=== PATIENT | female | born 1995 | race Caucasian/White ===

== ENCOUNTER 2017-09-10 13:15 | Emergency (ER) | payer MEDICAID, OTHER ==
[2017-09-10 13:22] VITALS: BP 128/69
--- NOTE | 2017-09-10 13:26 | EDM.PDOC ---
ED HPI GENERAL MEDICAL PROBLEM - General Chief Complaint: Laceration Stated Complaint: LEFT HAND LAC Time Seen by Provider: 09/10/17 13:26 Source of Information: Reports: Patient - History of Present Illness INITIAL COMMENTS - FREE TEXT/NARRATIVE: Patient is here for a laceration on her left hand. She states that she was at home, she was cutting bread with a sharp knife and cut the palm of her hand just proximal to the left index finger. Patient states that she is over all fairly healthy, denies any bleeding or clotting disorders. She is not diabetic. 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 Patient is unsure of her last tetanus. - Related Data Allergies Allergy/AdvReac Type Severity Reaction Status Date / Time No Known Allergies Allergy Verified 12/04/14 11:39 Home Meds: Home Meds ALPRAZolam [Alprazolam] 0.25 mg PO BID PRN 12/04/14 [History] Past Medical History - Past Health History Medical/Surgical History: Denies Medical/Surgical History Psychiatric History: Reports: Anxiety - Past Surgical History Other Musculoskeletal Surgeries/Procedures:: Left hand surgery Social & Family History - Family History Family Medical History: Noncontributory - Tobacco Use Smoking Status *Q: Current Every Day Smoker Years of Tobacco use: 2 Packs/Tins Daily: 0.5 - Recreational Drug Use Recreational Drug Use: No ED ROS GENERAL - Review of Systems Review Of Systems: See Below Constitutional: Reports: No Symptoms Skin: Reports: Other (Laceration to left hand). Denies: Bruising, Change in Color Neurological: Reports: No Symptoms Immunologic: Reports: No Symptoms ED EXAM, SKIN/RASH Exam: See Below Exam Limited By: No Limitations General Appearance: Alert, WD/WN, No Apparent Distress Neurological: Alert, Oriented, No Motor/Sensory Deficits Psychiatric: Normal Affect, Normal Mood Skin: Warm, Dry, Intact, Wound/Incision (1.3 cm laceration to left palm at the base of the index finger.) ED SKIN PROCEDURES - Laceration/Wound Repair Left Hand Lac/Wound length In cm: 1.3 Appearance: Linear Distal NVT: Neuro & Vascular Intact, No Tendon Injury Anesthetic Type: Local Local Anesthesia - Lidocaine (Xylocaine): 1% with EPI Local Anesthetic Volume: 2cc Skin Prep: Chlorhexidine (Hibiciens) Exploration/Debridement/Repair: Wound Explored, In a Bloodless Field, Explored to Base, No Foreign Material Found Closed with: Sutures Suture Size: 4-0 # of Sutures: 2 Suture Type: Nylon, Interrupted, Simple - Joint Reduction Pre-Procedure NV Status: Normal Post-Procedure NV Status: Normal Course - Vital Signs Last Recorded V/S: Last Vital Signs Temp 97.8 F 09/10/17 13:19 Pulse 81 09/10/17 13:19 Resp 14 09/10/17 13:19 BP 128/69 09/10/17 13:19 Pulse Ox 98 09/10/17 13:19 - Orders/Labs/Meds Orders: Active Orders 24 hr Category Date Time Status Vaccines to be Administered [RC] PER UNIT ROUTINE Care 09/10/17 13:32 Active Meds: Medications Discontinued Medications Generic Name Dose Route Start Last Admin Trade Name Fremegha PRN Reason Stop Dose Admin Diphtheria/Tetanus/Acell Pertussis 0.5 ml 09/10/17 13:32 Adacel IM 09/10/17 13:33 .ONCE ONE Lidocaine/Epinephrine 20 ml 09/10/17 13:32 09/10/17 13:44 Xylocaine 1% With Epinephrine 1:100,000 INJECT 09/10/17 13:33 20 ml ONETIME ONE Administration - Re-Assessments/Exams Free Text/Narrative Re-Assessment/Exam: 2 simple interrupted sutures placed, neurovascular intact after procedure. Patient tolerated procedure well. Tdap booster given. Wound care instructions and monitoring for infection discussed. Patient will follow up with PCP in 7-10 days for suture removal. Departure - Departure Time of Disposition: 14:02 Disposition: Home, Self-Care 01 Condition: Good Clinical Impression: Laceration of palm without complication Qualifiers: Encounter type: initial encounter Laterality: left Qualified Code(s): S61.412A - Laceration without foreign body of left hand, initial encounter - Discharge Information Instructions: Laceration Care, Adult, [id number] Referrals: Ashlee Painter NP [Primary Care Provider] - Forms: ED Department Discharge Additional Instructions: Keep wound clean and dry. He may shower and wash her hands is normal, no hot tubs of those until this is completely healed. You do not need to cover this with a bandage, however if you're going to be in a dirty environment you may want to. Wear gloves when you are cleaning at work. Monitor for any worsening redness, swelling or draining. Follow-up in 7-10 days with your PCP for suture removal or your may remove return to the emergency room if needed. - My Orders Last 24 Hours: My Active Orders 09/10/17 13:32 Vaccines to be Administered [RC] PER UNIT ROUTINE - Assessment/Plan Last 24 Hours: My Active Orders 09/10/17 13:32 Vaccines to be Administered [RC] PER UNIT ROUTINE
[2017-09-10] MEDS ORDERED: Diphtheria,Pertussis(Acell),Tetanus Vaccine 0.5 ML SDV IM ONE (13:32)
[2017-09-10] MEDS ORDERED: Lidocaine 1% with EPINEPHrine 1:100,000 20 ML MDV INJECT ONE (13:32)
== END 2017-09-10 14:23 | disposition home or self-care (01) ==
LOC: JD.ED 13:15
DX: S61.412A Laceration without foreign body of left hand, initial encounter (principal); F41.9 Anxiety disorder, unspecified; F17.210 Nicotine dependence, cigarettes, uncomplicated; W26.0XXA Contact with knife, initial encounter; Z23 Encounter for immunization
CPT/HCPCS: 12001; 90471; 90715; 99282-25; 99283-25

== ENCOUNTER 2020-08-19 14:03 | Inpatient (IN) | payer OTHER ==
[2020-08-19] MEDS ORDERED: Nalbuphine 10 MG/1 ML Vial IVPUSH PRN (14:58)
[2020-08-19] MEDS ORDERED: Lidocaine 1% 50 ML MDV INJECT PRN (14:58)
[2020-08-19] MEDS ORDERED: Sodium Chloride 0.9% 10 ML Syringe FLUSH PRN (14:58)
[2020-08-19] MEDS ORDERED: Oxytocin/Lactated Ringers 10 UNIT/1,000 ML BAG IV SCH (15:00)
[2020-08-19] MEDS: Lactated Ringers 1,000 ML IV SCH ×3 (15:54→23:43)
[2020-08-19] MEDS ORDERED: Ampicillin 2 GM in Sodium Chloride 0.9% 100 ML IV ONE (16:00)
--- NOTE | 2020-08-19 16:01 | PCM.LDHP ---
<Kaia Márquez - Last Filed: 08/19/20 16:22> L&D History of Present Illness - General Date of Service: 08/19/20 Admit Problem/Dx: Patient Status Order with Admit Dx/Problem 08/19/20 14:58 Patient Status [ADT] Routine Admission Diagnosis/Problem Admission Diagnosis/Problem Source of Information: Patient History Limitations: Reports: No Limitations - History of Present Illness Introduction:: Elva is a 24 yo white female admitted on the afternoon of 08/19/2020 at 39-1 weeks gestational age with an MICHAEL of 08/25/2020 for spontaneous rupture of membranes subsequently leading to early labor. She was seen in clinic prior to admission where monitoring as well as an Amnisure test took place. Amnisure was positive. She reports good activity although she states it was decreased earlier today. She is not currently in any pain but does have increased pelvic pressure. US performed on 08/14/2020 which showed LGA baby with estimated weight of 4073 g. Fundal height is 41 cm. Pt is GBS positive and is a candidate for Ampicillin. She is okay with an epidural and states she will decide whether or not to have an epidural as the labor progresses. course: Pt was initially seen with this at 01/03/2020 at 6 weeks and 3 days. She was seen on a regular basis throughout the . Fundal height is greater than gestational age at 41 cm with EFW of 9 pounds 0 oz. Pt's current weight is 220 lb with a total weight gain this of 55.4 pounds. Declined flu vaccine. Tdap given on 06/19/2020. She is rubella immune. Laboratory testing in shows blood to be A+. Her hemoglobin at first visit was 14.0 g/dL. Platelets were 248,000. RPR is non-reactice. Urine culture was negative. Hepatitis B surface antigen and HIV assays were both neg ative. Chlamydia and gonnorhea tests were both negative. Second trimester labs showed hemoglobin of 11.0, pt was started on iron supplementation. Platelets at this time were 228,000. Her 1 hour GTT was 103 mg/dL. Location, : Reports: Pelvic Quality: Reports: Pressure Severity: Moderate - Related Data Allergies/Adverse Reactions: Allergies Allergy/AdvReac Type Severity Reaction Status Date / Time No Known Allergies Allergy Verified 08/19/20 17:06 Home Medications: Home Meds Ferrous Sulfate [Iron] 325 mg PO DAILY 08/19/20 [History] Pnv No.95/Ferrous Fum/Folic AC [ Vitamin Tablet] 1 each PO DAILY 08/19/20 [History] Past Medical History - Past Health History Medical/Surgical History: Denies Medical/Surgical History [employer] History: Reports: : 1 Para: 0 Other OB/BYN History: This is patient's first . She is unsure of her age at first menarche but thinks it was around age 14. Her due date of 08/25/2020 is based upon her LMP of 11/19/2019 and supported by multiple ultrasounds during the course of the . No significant past obstetric history. Musculoskeletal History: Reports: None Psychiatric History: Reports: Anxiety - Past Surgical History Musculoskeletal Surgical History: Reports: Other (See Below) Other Musculoskeletal Surgeries/Procedures:: Left hand surgery-ganglion Social & Family History - Family History Family Medical History: No Pertinent Family History Cardiac: Reports: IN Other Cardiac Family History: grandfather Oncologic: Reports: Lung Other Oncologic Family History: 2 grandmothers - Tobacco Use Tobacco Use Status *Q: Former Tobacco User Tobacco Use Within Last Twelve Months: Cigarettes Packs/Tins Daily: 1 Used Tobacco, but Quit: Yes Month/Year Tobacco Last Used: November 2019 Smoking Cessation Information Provided To Patient: Patient Refused (Pt states she is not going to smoke again after . Wants to "quit for good".) - Living Situation & Occupation Living situation: Reports: Single, with Significant Other Occupation: Employed Social History Comment: Pt is single and lives in [place] with father of the baby. She works at a bar. She does not use any significant alcohol, drugs, or tobacco. Quit smoking once she found out she was . H&P Review of Systems - Review of Systems: General: Reports: No Symptoms HEENT: Reports: No Symptoms Pulmonary: Reports: No Symptoms Cardiovascular: Reports: No Symptoms Gastrointestinal: Reports: No Symptoms Genitourinary: Reports: No Symptoms, Frequency Musculoskeletal: Reports: No Symptoms Skin: Reports: No Symptoms Psychiatric: Reports: No Symptoms Neurological: Reports: No Symptoms Hematologic/Lymphatic: Reports: No Symptoms Immunologic: Reports: No Symptoms L&D Exam - Exam Exam: See Below - Vital Signs Vital Signs: Last Vital Signs Temp Pulse 95 08/19/20 15:30 Resp BP Pulse Ox Weight: 99.79 kg - OB Specific Contraction Intensity: Mild Movement: Active Heart Tones: Present - Exam General: Alert, Oriented, Cooperative HEENT: Conjunctiva Clear, EACs Clear, Hearing Intact, Pupils Equal Neck: Supple, Trachea Midline Lungs: Clear to Auscultation, Normal Respiratory Effort Cardiovascular: Regular Rate, Regular Rhythm GI/Abdominal Exam: Normal Bowel Sounds Rectal Exam: Deferred Genitourinary: Deferred Back Exam: Normal Inspection Extremities: Normal Inspection, Normal Range of Motion, Non-Tender Skin: Warm, Dry, Intact DTR: 1+: Bicep (L), Bicep (R), 2+: Patella (L), Patella (R) Psychiatric: Alert, Normal Affect, Normal Mood - Patient Data Lab Results Last 24 hrs: Laboratory Results - last 24 hr 08/19/20 Range/Units 15:34 WBC 12.82 H (3.98-10.04) K/mm3 RBC 4.24 (3.98-5.22) M/mm3 Hgb 12.4 (11.2-15.7) gm/dl Hct 37.8 (34.1-44.9) % MCV 89.2 (79.4-94.8) fl MCH 29.2 (25.6-32.2) pg MCHC 32.8 (32.2-35.5) g/dl RDW Std Deviation 45.1 (36.4-46.3) fL Plt Count 238 (182-369) K/mm3 MPV 9.0 L (9.4-12.3) fl Neut % (Auto) 81.4 H (34.0-71.1) % Lymph % (Auto) 10.0 L (19.3-51.7) % [place] % (Auto) 7.1 (4.7-12.5) % Eos % (Auto) 0.8 (0.7-5.8) Baso % (Auto) 0.2 (0.1-1.2) % Neut # (Auto) 10.44 H (1.56-6.13) K/mm3 Lymph # (Auto) 1.28 (1.18-3.74) K/mm3 [place] # (Auto) 0.91 H (0.24-0.36) K/mm3 Eos # (Auto) 0.10 (0.04-0.36) K/mm3 Baso # (Auto) 0.02 (0.01-0.08) K/mm3 Result Diagrams: 08/19/20 15:34 Orders Last 24hrs: Active Orders 24 hr Category Date Time Status Patient Status [ADT] Routine ADT 08/19/20 14:58 Active Activity as Tolerated [RC] PFP Care 08/19/20 14:58 Active Antiembolic Devices [RC] .Routine Care 08/19/20 15:00 Active Communication Order [RC] ASDIRECTED Care 08/19/20 14:58 Active Heart Tones [RC] ASDIRECTED Care 08/19/20 14:59 Active Non Stress Test [RC] PER UNIT ROUTINE Care 08/19/20 14:58 Active Notify Provider [RC] PFP Care 08/19/20 14:58 Active Notify Provider [RC] PRN Care 08/19/20 14:58 Active Peripheral IV Care [RC] . DIRECTED Care 08/19/20 14:59 Active Urinary Catheter Assessment [RC] ASDIRECTED Care 08/19/20 14:58 Active VTE/DVT Education [RC] PER UNIT ROUTINE Care 08/19/20 15:00 Active Vital Signs [RC] PER UNIT ROUTINE Care 08/19/20 14:58 Active Regular Diet [DIET] Diet 08/19/20 Dinner Active CORONAVIRUS COVID-19 YRN [MOLEC] Stat Lab 08/19/20 15:01 Ordered RAPID PLASMA REAGIN,RPR [CHEM] Routine Lab 08/19/20 15:34 Received Ampicillin 1 gm Med 08/19/20 20:00 Active Sodium Chloride 0.9% [Normal Saline] 100 ml IV Q4H Ampicillin 2 gm Med 08/19/20 16:00 Active Sodium Chloride 0.9% [Normal Saline] 100 ml IV ONETIME Lactated Ringers [Ringers, Lactated] 1,000 ml Med 08/19/20 15:00 Active IV ASDIRECTED Lidocaine 1% [Xylocaine 1%] Med 08/19/20 14:58 Active 50 ml INJECT ONETIME PRN Nalbuphine [Nubain] Med 08/19/20 14:58 Active 10 mg IVPUSH Q2H PRN Oxytocin/Lactated Ringers [Pitocin in LR 10 Units/1,000 Med 08/19/20 15:00 Active ML] 10 unit in 1,000 ml IV .CONTINUOUS Oxytocin/Lactated Ringers [Pitocin in LR 10 Units/1,000 Med 08/19/20 15:00 Active ML] 10 unit in 1,000 ml IV TITRATE Sodium Chloride 0.9% [Saline Flush] Med 08/19/20 14:58 Active 10 ml FLUSH ASDIRECTED PRN DVT/VTE Prophylaxis Reflex [OM.PC] Routine Oth 08/19/20 14:59 Ordered Electronic Heart Tones Ext w TOCO [WOMSER] Oth 08/19/20 14:58 Ordered Routine Electronic Heart Tones Internal [WOMSER] Per Unit Oth 08/19/20 14:58 Ordered Routine Peripheral IV Insertion Adult [OM.PC] Routine Ot 08/19/20 14:58 Ordered Sequential Compression Device [OM.PC] Per Unit Routine Ot 08/19/20 15:02 Ordered Resuscitation Status Routine Resus Stat 08/19/20 14:58 Ordered Medication Orders Ampicillin Sodium 2 gm/ Sodium (Chloride) 100 mls @ 200 mls/hr IV ONETIME ONE Stop: 08/19/20 16:29 Ampicillin Sodium 1 gm/ Sodium (Chloride) 100 mls @ 200 mls/hr IV Q4H ASH Oxytocin/Lactated Ringer's (Pitocin In Lr 10 Units/1,000 Ml) 10 unit in 1,000 mls @ 500 mls/hr IV .CONTINUOUS ASH Oxytocin/Lactated Ringer's (Pitocin In Lr 10 Units/1,000 Ml) 10 unit in 1,000 mls @ 12 mls/hr IV TITRATE ASH; Protocol Lactated Ringer's (Ringers, Lactated) 1,000 mls @ 100 mls/hr IV ASDIRECTED ASH Lidocaine HCl (Xylocaine 1%) 50 ml INJECT ONETIME PRN PRN Reason: Breakthrough Pain Nalbuphine HCl (Nubain) 10 mg IVPUSH Q2H PRN PRN Reason: Pain Sodium Chloride (Saline Flush) 10 ml FLUSH ASDIRECTED PRN PRN Reason: Keep Vein Open <Jose Andre F - Last Filed: 08/20/20 20:42> L&D History of Present Illness - General Admit Problem/Dx: Patient Status Order with Admit Dx/Problem 08/20/20 13:58 Patient Status [ADT] Routine Admission Diagnosis/Problem Admission Diagnosis/Problem Vaginal delivery 08/20/20 20:37 Elva is a 24-year-old to 1 para 0 white female admitted spontaneous rupture membranes in early labor. H&P Review of Systems - Review of Systems: Review Of Systems: See Below L&D Exam - Exam Exam: See Below - Vital Signs Vital Signs: Last Vital Signs Temp 36.8 C 08/20/20 17:03 Pulse 107 H 08/20/20 17:03 Resp 16 08/20/20 17:03 BP 156/79 H 08/20/20 17:03 Pulse Ox 97 08/20/20 17:03 - Patient Data Lab Results Last 24 hrs: Laboratory Results - last 24 hr 08/19/20 Range/Units 15:34 RPR Non-reactive (NONREACTIVE) Result Diagrams: 08/19/20 15:34 Problem List Initiated/Reviewed/Updated: Yes Orders Last 24hrs: Active Orders 24 hr Category Date Time Status Patient Status [ADT] Routine ADT 08/20/20 13:58 Active Activity as Tolerated [RC] PER UNIT ROUTINE Care 08/20/20 13:58 Active May Shower [RC] ASDIRECTED Care 08/20/20 13:58 Active Notify Provider Vital Signs [RC] ASDIRECTED Care 08/20/20 13:58 Active Vital Signs [RC] 03,,, Care 08/20/20 13:58 Active Regular Diet [DIET] Diet 08/20/20 Lunch Active Acetaminophen [TylenoL] Med 08/20/20 13:58 Active 650 mg PO Q6H PRN Benzocaine/Menthol [Dermoplast Pain Relief [place]] Med 08/20/20 13:58 Active See Dose Instructions TOP ASDIRECTED PRN Docusate Sodium [Colace] Med 08/20/20 13:58 Active 100 mg PO BID PRN Hydrocortisone Acetate [Anucort-HC] Med 08/20/20 13:58 Active 25 mg RECTAL BID PRN Ibuprofen [Motrin] Med 08/20/20 13:58 Active 600 mg PO Q6H PRN Magnesium Hydroxide [Milk of Magnesia] Med 08/20/20 13:58 Active 30 ml PO BEDTIME PRN Oxytocin/Lactated Ringers [Pitocin in LR 10 Units/1,000 Med 08/20/20 13:58 Active ML] 10 unit in 1,000 ml IV TITRATE Vit with Ca/FA/Iron [ Plus Iron] Med 08/21/20 09:00 Active 1 each PO DAILY witramón Alcazar [Tucks] Med 08/20/20 13:58 Active 1 pad TOP ASDIRECTED PRN Assess Lochia [WOMSER] Per Unit Routine Ot 08/20/20 13:58 Ordered Assess Uterine Involution [WOMSER] Per Unit Routine Ot 08/20/20 13:58 Ordered Breast Pump [WOMSER] Per Unit Routine Ot 08/20/20 13:58 Ordered Heat Therapy [OM.PC] PRN Ot 08/20/20 13:58 Ordered Heat Therapy [OM.PC] PRN Ot 08/21/20 13:58 Ordered Ice Therapy [OM.PC] Per Unit Routine Ot 08/20/20 13:58 Ordered Medication Administration Instruction [OM.PC] Routine Ot 08/20/20 13:58 Ordered Perineal Care [OM.PC] Per Unit Routine Ot 08/20/20 13:58 Ordered Peripheral IV Discontinue [OM.PC] Routine Ot 08/20/20 13:58 Ordered Sitz Bath [OM.PC] Per Unit Routine Ot 08/20/20 13:58 Ordered Medication Orders Acetaminophen (Tylenol) 650 mg PO Q6H PRN PRN Reason: mild pain or fever Benzocaine/Menthol (Dermoplast Pain Relief [place]) 0 gm TOP ASDIRECTED PRN PRN Reason: Perineal Comfort Measure Last Admin: 08/20/20 14:24 Dose: 1 canister Documented by: BULMARO Docusate Sodium (Colace) 100 mg PO BID PRN PRN Reason: Constipation Last Admin: 08/20/20 14:22 Dose: 100 mg Documented by: BULMARO Hydrocortisone Acetate (Anucort-Hc) 25 mg RECTAL BID PRN PRN Reason: Hemorrhoid pain Oxytocin/Lactated Ringer's (Pitocin In Lr 10 Units/1,000 Ml) 10 unit in 1,000 mls @ 100 mls/hr IV TITRATE ASH; Protocol Ibuprofen (Motrin) 600 mg PO Q6H PRN PRN Reason: Mild pain or fever Last Admin: 08/20/20 14:22 Dose: 600 mg Documented by: BULMARO Magnesium Hydroxide (Milk Of Magnesia) 30 ml PO BEDTIME PRN PRN Reason: Constipation Prenat Multivit/Emmet/Iron/Folic Ac ( Plus Iron) 1 each PO DAILY ASH Alcazar (Tucks) 1 pad TOP ASDIRECTED PRN PRN Reason: Perineal Comfort Measure Last Admin: 08/20/20 14:24 Dose: 1 container Documented by: BULMARO Assessment/Plan Comment:: 1. 4-year-old 1 para 0 white female at 39-1/7 weeks gestational age with an MICHAEL of 08/25/2020 with spontaneous rupture membranes and positive AmniSure. Patient reports SROM at approximately 0930 hrs. on 08/19/2020 2. Strep screen + 3. Patient desires epidural in labor Plan: 1. Pitocin induction of labor 2. Epidural as needed 3. Group B strep prophylaxis with ampicillin 4. Routine careanticipate . 5. Support breast-feeding decision.
[2020-08-19] MEDS: Oxytocin/Lactated Ringers 10 UNIT/1,000 ML BAG IV SCH (16:33)
--- NOTE | 2020-08-19 19:41 | PCM.PREANE ---
Preanesthetic Assessment - Procedure Proposed Procedure: george - Anesthesia/Transfusion/Family Hx Anesthesia History: Prior Anesthesia Without Reaction Family History of Anesthesia Reaction: No Transfusion History: No Prior Transfusion(s) Type of Transfusion Reactions: Reports: Unknown - Review of Systems General: No Symptoms Pulmonary: No Symptoms Cardiovascular: No Symptoms Gastrointestinal: No Symptoms Neurological: No Symptoms Other: Reports: None - Physical Assessment Vital Signs: Last Vital Signs Temp 97.7 F 08/19/20 14:31 Pulse 95 08/19/20 15:30 Resp 18 08/19/20 14:31 BP 139/82 08/19/20 14:31 Pulse Ox 99 08/19/20 14:31 Height: 5 ft 5 in Weight: 99.79 kg ASA Class: 2 Mental Status: Alert & Oriented x3 Airway Class: Mallampati = 1 Dentition: Reports: Normal Dentition Thyro-Mental Finger Breadths: 3 Mouth Opening Finger Breadths: 3 ROM/Head Extension: Full Lungs: Clear to Auscultation, Normal Respiratory Effort Cardiovascular: Regular Rate, Regular Rhythm - Lab Values: Laboratory Last Values WBC 12.82 K/mm3 (3.98-10.04) H 08/19/20 15:34 RBC 4.24 M/mm3 (3.98-5.22) 08/19/20 15:34 Hgb 12.4 gm/dl (11.2-15.7) 08/19/20 15:34 Hct 37.8 % (34.1-44.9) 08/19/20 15:34 MCV 89.2 fl (79.4-94.8) 08/19/20 15:34 MCH 29.2 pg (25.6-32.2) 08/19/20 15:34 MCHC 32.8 g/dl (32.2-35.5) 08/19/20 15:34 RDW Std Deviation 45.1 fL (36.4-46.3) 08/19/20 15:34 Plt Count 238 K/mm3 (182-369) 08/19/20 15:34 MPV 9.0 fl (9.4-12.3) L 08/19/20 15:34 Neut % (Auto) 81.4 % (34.0-71.1) H 08/19/20 15:34 Lymph % (Auto) 10.0 % (19.3-51.7) L 08/19/20 15:34 [place] % (Auto) 7.1 % (4.7-12.5) 08/19/20 15:34 Eos % (Auto) 0.8 (0.7-5.8) 08/19/20 15:34 Baso % (Auto) 0.2 % (0.1-1.2) 08/19/20 15:34 Neut # (Auto) 10.44 K/mm3 (1.56-6.13) H 08/19/20 15:34 Lymph # (Auto) 1.28 K/mm3 (1.18-3.74) 08/19/20 15:34 [place] # (Auto) 0.91 K/mm3 (0.24-0.36) H 08/19/20 15:34 Eos # (Auto) 0.10 K/mm3 (0.04-0.36) 08/19/20 15:34 Baso # (Auto) 0.02 K/mm3 (0.01-0.08) 08/19/20 15:34 SARS-CoV-2 RNA (YRN) Negative (NEGATIVE) 08/19/20 15:55 - Allergies Allergies/Adverse Reactions: Allergies Allergy/AdvReac Type Severity Reaction Status Date / Time No Known Allergies Allergy Verified 08/19/20 17:06 - Blood Blood Available: No - Acknowledgements Anesthesia Type Planned: Epidural Pt an Appropriate Candidate for the Planned Anesthesia: Yes Alternatives and Risks of Anesthesia Discussed w Pt/Guardian: Yes Pt/Guardian Understands and Agrees with Anesthesia Plan: Yes PreAnesthesia Questionnaire - Past Health History Medical/Surgical History: Denies Medical/Surgical History Cardiovascular History: Reports: None Respiratory History: Reports: None Gastrointestinal History: Reports: None 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 She is unsure of her age at first menarche but thinks it was around age 14. Her due date of 08/25/2020 is based upon her LMP of 11/19/2019 and supported by multiple ultrasounds during the course of the . No significant past obstetric history. Musculoskeletal History: Reports: None Psychiatric History: Reports: Anxiety Oncologic (Cancer) History: Reports: None - Past Surgical History Musculoskeletal Surgical History: Reports: Other (See Below) Other Musculoskeletal Surgeries/Procedures:: Left hand surgery-ganglion - SUBSTANCE USE Tobacco Use Status *Q: Former Tobacco User Tobacco Use Within Last Twelve Months: Cigarettes Second Hand Smoke Exposure: Yes Recreational Drug Use History: No - HOME MEDS Home Medications: Home Meds Ferrous Sulfate [Iron] 325 mg PO DAILY 08/19/20 [History] Pnv No.95/Ferrous Fum/Folic AC [ Vitamin Tablet] 1 each PO DAILY 08/19/20 [History] - CURRENT (IN HOUSE) MEDS Current Meds: Current Medications Ampicillin Sodium 1 gm/ Sodium (Chloride) 100 mls @ 200 mls/hr IV Q4H ASH Oxytocin/Lactated Ringer's (Pitocin In Lr 10 Units/1,000 Ml) 10 unit in 1,000 mls @ 500 mls/hr IV .CONTINUOUS ASH Oxytocin/Lactated Ringer's (Pitocin In Lr 10 Units/1,000 Ml) 10 unit in 1,000 mls @ 12 mls/hr IV TITRATE ASH; Protocol Last Titration: 08/19/20 18:30 Dose: 8 munits/min, 48 mls/hr Documented by: Lactated Ringer's (Ringers, Lactated) 1,000 mls @ 100 mls/hr IV ASDIRECTED ASH Last Admin: 08/19/20 15:54 Dose: 100 mls/hr Documented by: Lidocaine HCl (Xylocaine 1%) 50 ml INJECT ONETIME PRN PRN Reason: Breakthrough Pain Nalbuphine HCl (Nubain) 10 mg IVPUSH Q2H PRN PRN Reason: Pain Sodium Chloride (Saline Flush) 10 ml FLUSH ASDIRECTED PRN PRN Reason: Keep Vein Open Discontinued Medications Ampicillin Sodium 2 gm/ Sodium (Chloride) 100 mls @ 200 mls/hr IV ONETIME ONE Stop: 08/19/20 16:29 Last Admin: 08/19/20 15:54 Dose: 200 mls/hr Documented by:
[2020-08-19] MEDS ORDERED: ePHEDrine 50 MG/ML SDV IVPUSH PRN (19:45)
[2020-08-19] MEDS ORDERED: diphenhydrAMINE 50 MG/ML SDV IVPUSH PRN (19:45)
[2020-08-19] MEDS ORDERED: fentaNYL 100 MCG/2 ML SDV EPIDUR PRN (19:45)
[2020-08-19] MEDS: Ampicillin 1 GM in Sodium Chloride 0.9% 100 ML IV SCH ×2 (19:53→23:42)
[2020-08-19] MEDS: Bupivacaine/fentaNYL/NS 100 ML Bag EPIDUR PRN (21:16)
[2020-08-20] MEDS ORDERED: Bupivacaine 0.25% 10 ML SDV ONE
[2020-08-20] MEDS: Ampicillin 1 GM in Sodium Chloride 0.9% 100 ML IV SCH ×3 (03:42→12:21)
[2020-08-20] MEDS: Bupivacaine/fentaNYL/NS 100 ML Bag EPIDUR PRN (04:43)
[2020-08-20] MEDS: Oxytocin/Lactated Ringers 10 UNIT/1,000 ML BAG IV SCH (07:20)
[2020-08-20] MEDS: Lactated Ringers 1,000 ML IV SCH (10:45)
[2020-08-20] MEDS ORDERED: Lidocaine 1% 50 ML MDV ONE (12:12)
--- NOTE | 2020-08-20 12:48 | PCM.DEL ---
L & D Note - General Info Date of Service: 08/20/20 Mother's Due Date: 08/25/20 - Delivery Note Labor: Spontaneous, Augmented by Oxytocin Cervical Ripening Method: Oxytocin Delivery Outcome: Livebirth Presentation: Right Occiput Anterior (TERRELL) Nuchal Cord: None Prep: Povidone-Iodine (Betadine Anesthesia Type: Epidural Anesthetic: Lidocaine (Xylocaine) 1% Plain Local Anesthetic Volume: Other (15 mL) Amniotic Fluid Description: Clear Episiotomy Type: None Laceration: 2nd Degree (Midline perineal laceration repaired with 3-0 Vicryl), Labial (Bilateral medial labia minora laceration, hemostatic and not repaired) Suture type: Vicryl Suture size: 3-0 Placenta: Intact, Spontaneous, Partial (Partial membranes removed with ring forceps) Cord: 3 Vessels Estimated Blood Loss: 400 Resuscitation Needed: Yes [place]: Suctioned, Bulb Syringe, Stimulated, Warmed, [place] Used, Warmer Used Provider: Alexandre Torres Score 1 min: 8 Score 5 min: 9 Second Stage Interventions: Reports: Pushing Effectively, Pushing, Stirrups/Leg Supports Delivery Comments (Free Text/Narrative):: Stage I: Elva Xiong was admitted for spontaneous rupture membranes. She was GBS positive and was started on ampicillin for GBS prophylaxis. She received a total of 5 doses prior to delivery. She was given an epidural for anesthesia. She was given Pitocin for augmentation of labor. She had artificial rupture of membranes of a fore bag with lightly bloodstained fluid. She progressed to complete and pushing. Stage II: On 08/20/2020 she had a normal vaginal delivery of a live female at 11:57. Apgars of 8 & 9. Weight of 4160 g (9 lbs 2.7 oz). Length of 22.5 inches. There was no nuchal cord. Infant was delivered in TERRELL position. The cord was doubly clamped and cut by father the . was placed on mother's abdomen and then taken to the warmer for additional resuscitation. Stage III: She had a spontaneous delivery of the placenta with retained portions of amniotic membranes in Brianne presentation. A ring forceps was used to remove the retained portions of the amniotic membranes without difficulty. Three vessel cord. She was given pitocin and fundal massage. She had a second-degree midline perineal laceration that was repaired with 3-0 Vicryl. She had bilateral labia minora lacerations that were hemostatic and not repaired. Mom and baby were stable to recovery. EBL of 400 mL. Alexandre Torres MD 12:44 PM 08/20/2020 - General Info Date of Service: 08/20/20 - Patient Data Vitals - Most Recent: Last Vital Signs Temp 36.5 C 08/19/20 14:31 Pulse 95 08/19/20 15:30 Resp 18 08/19/20 14:31 BP 139/82 08/19/20 14:31 Pulse Ox 99 08/19/20 14:31 Weight - Most Recent: 99.79 kg Lab Results Last 24 Hours: Laboratory Results - last 24 hr 08/19/20 08/19/20 08/19/20 Range/Units 15:34 15:34 15:55 WBC 12.82 H (3.98-10.04) K/mm3 RBC 4.24 (3.98-5.22) M/mm3 Hgb 12.4 (11.2-15.7) gm/dl Hct 37.8 (34.1-44.9) % MCV 89.2 (79.4-94.8) fl MCH 29.2 (25.6-32.2) pg MCHC 32.8 (32.2-35.5) g/dl RDW Std Deviation 45.1 (36.4-46.3) fL Plt Count 238 (182-369) K/mm3 MPV 9.0 L (9.4-12.3) fl Neut % (Auto) 81.4 H (34.0-71.1) % Lymph % (Auto) 10.0 L (19.3-51.7) % Hunt % (Auto) 7.1 (4.7-12.5) % Eos % (Auto) 0.8 (0.7-5.8) Baso % (Auto) 0.2 (0.1-1.2) % Neut # (Auto) 10.44 H (1.56-6.13) K/mm3 Lymph # (Auto) 1.28 (1.18-3.74) K/mm3 Hunt # (Auto) 0.91 H (0.24-0.36) K/mm3 Eos # (Auto) 0.10 (0.04-0.36) K/mm3 Baso # (Auto) 0.02 (0.01-0.08) K/mm3 RPR Non-reactive (NONREACTIVE) SARS-CoV-2 RNA (YRN) Negative (NEGATIVE) Med Orders - Current: Current Medications Diphenhydramine HCl (Benadryl) 25 mg IVPUSH Q6H PRN PRN Reason: pruritis Ephedrine Sulfate (Ephedrine Sulfate) 5 mg IVPUSH ASDIRECTED PRN PRN Reason: Hypotension Fentanyl (Sublimaze) 100 mcg EPIDUR Q3H PRN PRN Reason: Pain Last Admin: 08/19/20 21:15 Dose: 100 mcg Documented by: Fentanyl/Bupivacaine HCl (Fentanyl/Bupivacaine/Ns 2 Mcg-0.125% 100 Ml) 100 ml EPIDUR ASDIRECTED PRN PRN Reason: Pain Last Admin: 08/20/20 04:43 Dose: 100 ml Documented by: Ampicillin Sodium 1 gm/ Sodium (Chloride) 100 mls @ 200 mls/hr IV Q4H ASH Last Admin: 08/20/20 12:21 Dose: Not Given Documented by: Oxytocin/Lactated Ringer's (Pitocin In Lr 10 Units/1,000 Ml) 10 unit in 1,000 mls @ 500 mls/hr IV .CONTINUOUS ASH Oxytocin/Lactated Ringer's (Pitocin In Lr 10 Units/1,000 Ml) 10 unit in 1,000 mls @ 12 mls/hr IV TITRATE ASH; Protocol Last Titration: 08/20/20 11:58 Dose: 166.5 munits/min, 999 mls/hr Documented by: Lactated Ringer's (Ringers, Lactated) 1,000 mls @ 100 mls/hr IV ASDIRECTED ASH Last Admin: 08/20/20 10:45 Dose: 100 mls/hr Documented by: Lidocaine HCl (Xylocaine 1%) 50 ml INJECT ONETIME PRN PRN Reason: Breakthrough Pain Last Admin: 08/20/20 12:15 Dose: 50 ml Documented by: Nalbuphine HCl (Nubain) 10 mg IVPUSH Q2H PRN PRN Reason: Pain Sodium Chloride (Saline Flush) 10 ml FLUSH ASDIRECTED PRN PRN Reason: Keep Vein Open Discontinued Medications Ampicillin Sodium 2 gm/ Sodium (Chloride) 100 mls @ 200 mls/hr IV ONETIME ONE Stop: 08/19/20 16:29 Last Admin: 08/19/20 15:54 Dose: 200 mls/hr Documented by: Lidocaine HCl (Xylocaine 1%) Confirm Administered Dose 50 ml .ROUTE .STK-MED ONE Stop: 08/20/20 12:13 Last Admin: 08/20/20 12:21 Dose: Not Given Documented by: - Problem List & Annotations (1) 39 weeks gestation of SNOMED Code(s): 56417173 Code(s): Z3A.39 - 39 WEEKS GESTATION OF Status: Acute Current Visit: Yes (2) GBS (group B Streptococcus carrier), +RV culture, currently SNOMED Code(s): 4548348536244, 792950940, 7004387708283 Code(s): O99.820 - STREPTOCOCCUS B CARRIER STATE COMPLICATING Status: Acute Current Visit: Yes (3) Vaginal delivery SNOMED Code(s): 926082767 Code(s): O80 - ENCOUNTER FOR FULL-TERM UNCOMPLICATED DELIVERY Status: Acute Current Visit: Yes (4) Second degree perineal laceration during delivery SNOMED Code(s): 2630140 Code(s): O70.1 - SECOND DEGREE PERINEAL LACERATION DURING DELIVERY Status: Acute Current Visit: Yes - Problem List Review Problem List Initiated/Reviewed/Updated: Yes - My Orders Last 24 Hours: My Active Orders 08/20/20 12:35 Patient Status Manage Transfer [TRANSFER] Routine - Plan Plan:: Admit to inpatient following normal spontaneous vaginal delivery Continue Pitocin per unit protocol following delivery of placenta and lactated Ringer's until tolerating regular diet Regular diet Vitals per unit routine Ibuprofen and Tylenol for pain control Assist with breast-feeding as needed Continue to monitor lochia Anticipate discharge home on day #2 Alexandre Torres MD 12:44 PM 08/20/2020
[2020-08-20] MEDS ORDERED: Oxytocin/Lactated Ringers 10 UNIT/1,000 ML BAG IV SCH (13:58)
[2020-08-20] MEDS ORDERED: Magnesium Hydroxide 400 MG/5 ML Susp 30 ML Cup PO PRN (13:58)
[2020-08-20] MEDS ORDERED: Acetaminophen 325 MG Tab PO PRN (13:58)
[2020-08-20] MEDS ORDERED: Benzocaine/Menthol 20%-0.5% Spray 56 GM Canister TOP PRN (13:58)
[2020-08-20] MEDS ORDERED: Hydrocortisone Acetate 25 MG Supp RECTAL PRN (13:58)
[2020-08-20] MEDS: Ibuprofen 600 MG Tab PO PRN ×2 (14:22→21:47)
[2020-08-20] MEDS: Docusate Sodium 100 MG Cap PO PRN (14:22)
[2020-08-20] MEDS: Witch Hazel Medicated Pads 40/Jar TOP PRN (14:24)
[2020-08-21] MEDS: Acetaminophen/oxyCODONE 325-5 MG Tab PO PRN ×6 (00:15→21:47)
[2020-08-21] MEDS: Prenatal Multivitamin with Calcium/Folic Acid/Iron Tab PO SCH (09:55)
[2020-08-21] MEDS: Docusate Sodium 100 MG Cap PO PRN (09:55)
--- NOTE | 2020-08-21 10:06 | PCM.SN.2 ---
- Free Text/Narrative Note: Post Progress Note PPD #1 Subjective: Doing well overall. Ambulating slowly without difficulty. Lochia minimal. Voiding without difficulty. Tolerating regular diet without nausea or vomiting. Reports that she is having some hip pain that is more severe than the pelvic pain. She was written for Percocet by Dr. Andre and states that this is helping with her pain. Breast-feeding with minimal difficulty. Objective: Vitals: Vital Signs - 24 hr 08/20/20 08/20/20 08/21/20 17:03 22:12 03:59 Temperature 36.8 C 36.8 C 36.7 C Pulse, 107 H 108 H 92 Peripheral Respiratory 16 14 14 Rate Blood Pressure 156/79 H 135/69 108/82 O2 Sat by Pulse 97 96 97 Oximetry 08/21/20 10:00 Temperature 37.6 C Pulse, 102 H Peripheral Respiratory 16 Rate Blood Pressure 113/65 O2 Sat by Pulse 97 Oximetry Physical Exam General: Alert and oriented, no acute distress Lungs: Clear to auscultation bilaterally Heart: Regular rate and rhythm Abdomen: Soft, minimal appropriate tenderness, non-distended, fundus midline, nontender, and at the umbilicus Extremities: Trace edema in bilateral lower extremities to mid shins ASSESSMENT: 24-year-old female -0-0-1 s/p normal vaginal delivery PPD #1, complicated by macrosomia and GBS positive status and she received 5 doses of ampicillin in labor PLAN: Doing well Breast-feeding with minimal difficulty. Assist as needed Lochia minimal. Continue to monitor for appropriate lochia. Continue routine care Continue medications for pain control. Recommend for patient to try to avoid use of narcotic pain medications due to the addictive nature of these medications. Anticipate discharge home tomorrow Alexandre Torres MD 10:05 AM 08/21/2020
--- NOTE | 2020-08-21 14:36 | PCM48HPAN ---
Post Anesthesia Note - EVALUATION WITHIN 48HRS OF ANESTHETIC Vital Signs in Normal Range: Yes Patient Participated in Evaluation: Yes Respiratory Function Stable: Yes Airway Patent: Yes Cardiovascular Function Stable: Yes Hydration Status Stable: Yes Pain Control Satisfactory: Yes Nausea and Vomiting Control Satisfactory: Yes Mental Status Recovered: Yes Vital Signs: Last Vital Signs Temp 37.6 C 08/21/20 10:00 Pulse 102 H 08/21/20 10:00 Resp 16 08/21/20 10:00 BP 113/65 08/21/20 10:00 Pulse Ox 97 08/21/20 10:00 - COMMENTS/OBSERVATIONS Free Text/Narrative:: Discharged home. No concerns reported by nursing staff. Chart reviewed.
[2020-08-21] MEDS: Ibuprofen 600 MG Tab PO PRN (15:19)
[2020-08-22] MEDS: Acetaminophen/oxyCODONE 325-5 MG Tab PO PRN (05:37)
[2020-08-22] MEDS: Prenatal Multivitamin with Calcium/Folic Acid/Iron Tab PO SCH (08:53)
[2020-08-22] MEDS: Witch Hazel Medicated Pads 40/Jar TOP PRN (08:53)
--- NOTE | 2020-08-22 09:22 | PCM.SN.2 ---
- Free Text/Narrative Note: Post Progress Note PPD #2 Subjective: Doing well overall. Continues to ambulate slowly without difficulty. Reports minimal activity. Lochia minimal. Voiding without difficulty. Tolerating regular diet without nausea or vomiting. Reports that she is having some hip pain that feels sore and has been using warm tub baths to help with this. Breast-feeding with some difficulty with infant having poor suckling effort. Reports that the is latching appropriately. Objective: Vitals: Vital Signs - 24 hr 08/21/20 08/21/20 08/21/20 10:00 10:01 20:19 Temperature 37.6 C 37.6 C 36.6 C Pulse, 102 H 100 92 Peripheral Respiratory 16 16 16 Rate Blood Pressure 113/65 113/52 L 119/76 O2 Sat by Pulse 97 97 96 Oximetry 08/22/20 03:50 Temperature 36.8 C Pulse, 90 Peripheral Respiratory 16 Rate Blood Pressure 145/77 H O2 Sat by Pulse 96 Oximetry Physical Exam General: Alert and oriented, no acute distress Lungs: Clear to auscultation bilaterally Heart: Regular rate and rhythm Abdomen: Soft, minimal appropriate tenderness, non-distended, fundus midline, nontender, and at the umbilicus Extremities: Trace edema in bilateral lower extremities to ankles ASSESSMENT: 24-year-old female -0-0-1 s/p normal vaginal delivery PPD #2, complicated by macrosomia and GBS positive status and she received 5 doses of ampicillin in labor PLAN: * Doing well * Breast-feeding with some difficulty with infant having poor suckling effort. Assist as needed * Lochia minimal. Continue to monitor for appropriate lochia. * Continue routine care * Continue medications for pain control. Recommend for patient to try to avoid use of narcotic pain medications due to the addictive nature of these medications. Discussed with patient that recommendation after normal deliveries to not use narcotic pain medications. Also discussed with the patient that use of the narcotic medications can cause increased drowsiness and difficulty breast-feeding infant. Patient states understanding. * Discharge home today Alexandre Torres MD 9:17 AM 08/22/2020
--- NOTE | 2020-08-22 09:29 | PCM.DCSUM1 ---
Discharge Summary - Hospital Course Free Text/Narrative:: - General Info Date of Service: 08/20/20 Mother's Due Date: 08/25/20 - Delivery Note Labor: Spontaneous, Augmented by Oxytocin Cervical Ripening Method: Oxytocin Delivery Outcome: Livebirth Presentation: Right Occiput Anterior (TERRELL) Nuchal Cord: None Prep: Povidone-Iodine (Betadine Anesthesia Type: Epidural Anesthetic: Lidocaine (Xylocaine) 1% Plain Local Anesthetic Volume: Other (15 mL) Amniotic Fluid Description: Clear Episiotomy Type: None Laceration: 2nd Degree (Midline perineal laceration repaired with 3-0 Vicryl), Labial (Bilateral medial labia minora laceration, hemostatic and not repaired) Suture type: Vicryl Suture size: 3-0 Placenta: Intact, Spontaneous, Partial (Partial membranes removed with ring forceps) Cord: 3 Vessels Estimated Blood Loss: 400 Resuscitation Needed: Yes [place]: Suctioned, Bulb Syringe, Stimulated, Warmed, [place] Used, Warmer Used Provider: Alexandre Torres Score 1 min: 8 Score 5 min: 9 Second Stage Interventions: Reports: Pushing Effectively, Pushing, Stirrups/Leg Supports Delivery Comments (Free Text/Narrative):: Stage I: Elva Xiong was admitted for spontaneous rupture membranes. She was GBS positive and was started on ampicillin for GBS prophylaxis. She received a total of 5 doses prior to delivery. She was given an epidural for anesthesia. She was given Pitocin for augmentation of labor. She had artificial rupture of membranes of a fore bag with lightly bloodstained fluid. She progressed to complete and pushing. Stage II: On 08/20/2020 she had a normal vaginal delivery of a live female infant at 11:57. Apgars of 8 & 9. Weight of 4160 g (9 lbs 2.7 oz). Length of 22.5 inches. There was no nuchal cord. Infant was delivered in TERRELL position. The cord was doubly clamped and cut by father the . was placed on mother's abdomen and then taken to the warmer for additional resuscitation. Stage III: She had a spontaneous delivery of the placenta with retained portions of amniotic membranes in Brianne presentation. A ring forceps was used to remove the retained portions of the amniotic membranes without difficulty. Three vessel cord. She was given pitocin and fundal massage. She had a second-degree midline perineal laceration that was repaired with 3-0 Vicryl. She had bilateral labia minora lacerations that were hemostatic and not repaired. Mom and baby were stable to recovery. EBL of 400 mL. Diagnosis: Stroke: No - Discharge Data Discharge Date: 08/22/20 Discharge Disposition: Home, Self-Care 01 Condition: Good - Referral to Home Health Primary Care Physician: Ashlee Painter [employer] - Discharge Diagnosis/Problem(s) (1) 39 weeks gestation of SNOMED Code(s): 16857167 ICD Code: Z3A.39 - 39 WEEKS GESTATION OF Status: Acute Current Visit: Yes (2) GBS (group B Streptococcus carrier), +RV culture, currently SNOMED Code(s): 9502920797244, 524387689, 7950821080192 ICD Code: O99.820 - STREPTOCOCCUS B CARRIER STATE COMPLICATING Status: Acute Current Visit: Yes (3) Vaginal delivery SNOMED Code(s): 571091213 ICD Code: O80 - ENCOUNTER FOR FULL-TERM UNCOMPLICATED DELIVERY Status: Acute Current Visit: Yes (4) Second degree perineal laceration during delivery SNOMED Code(s): 6463708 ICD Code: O70.1 - SECOND DEGREE PERINEAL LACERATION DURING DELIVERY Status: Acute Current Visit: Yes - Patient Summary/Data Complications: None Consults: None Hospital Course: Elva Xiong was admitted for spontaneous rupture of membranes with clear fluid. She was GBS positive and was started on ampicillin for GBS prophylaxis. She received a total of 5 doses prior to delivery.she was given an epidural for anesthesia. She was given pitocin for augmentation. She progressed to complete and began pushing. On 08/20/2020 she had a normal vaginal delivery of a live female infant at 11:57. Apgars of 8 and 9. Weight of 4160 g (9 pounds 2.7 ounces). Her course was uneventful. Her pain was controlled with Percocet on labor and delivery and she had minimal lochia. She was ambulating, tolerating a regular diet and voiding normally. She was breast-feeding with some difficulty with having poor suckling effort with good latch. She was afebrile and her hematocrit was 37.8 on admission. She desired to be discharged home on the morning of PPD #2. Her blood type is A+. - Patient Instructions Diet: Regular Diet as Tolerated Activity: Apply Ice, As Tolerated Activity, Other: Nothing in the vagina for 6 weeks Driving: May Drive Today Showering/Bathing: May Shower Notify Provider of: Fever, Increased Pain, Swelling and Redness, Drainage, Nausea and/or Vomiting Other/Special Instructions: Please contact your physician's office if you have heavy vaginal bleeding enough to soak a pad in less than an hour for several hours. Monitor for any signs of an infection in the breasts with severe pain or redness of the breast. - Discharge Plan *PRESCRIPTION DRUG MONITORING PROGRAM REVIEWED*: Not Applicable *COPY OF PRESCRIPTION DRUG MONITORING REPORT IN PATIENT LOWELL: Not Applicable Prescriptions/Med Rec: Acetaminophen [Tylenol] 650 mg PO Q4H PRN #60 tablet PRN Reason: Pain Home Medications: Home Meds Ferrous Sulfate [Iron] 325 mg PO DAILY 08/19/20 [History] Pnv No.95/Ferrous Fum/Folic AC [ Vitamin Tablet] 1 each PO DAILY 08/19/20 [History] Acetaminophen [Tylenol] 650 mg PO Q4H PRN #60 tablet 08/22/20 [Rx] Benzocaine/Menthol [Dermoplast Pain Relief [place]] 1 spray TOP ASDIRECTED PRN canister 08/22/20 [Rx] Docusate Sodium [Colace] 100 mg PO BID PRN cap 08/22/20 [Rx] Hydrocortisone Acetate [Anucort-HC] 25 mg RECTAL BID PRN supp 08/22/20 [Rx] Ibuprofen [Motrin] 600 mg PO Q6H PRN tablet 08/22/20 [Rx] yossi smitheL [Tucks] 1 pad TOP ASDIRECTED PRN pad 08/22/20 [Rx] Patient Handouts: Care of a Perineal Tear, Care After Vaginal Delivery Referrals: Jose Andre MD [Physician] - (Follow-up in 2 to 3 weeks for routine visit or earlier as needed.) - Discharge Summary/Plan Comment DC Time >30 min.: No - Patient Data Vitals - Most Recent: Last Vital Signs Temp 36.8 C 08/22/20 03:50 Pulse 90 08/22/20 03:50 Resp 16 08/22/20 03:50 BP 145/77 H 08/22/20 03:50 Pulse Ox 96 08/22/20 03:50 Weight - Most Recent: 99.79 kg Med Orders - Current: Current Medications Benzocaine/Menthol (Dermoplast Pain Relief [place]) 0 gm TOP ASDIRECTED PRN PRN Reason: Perineal Comfort Measure Last Admin: 08/20/20 14:24 Dose: 1 canister Documented by: Docusate Sodium (Colace) 100 mg PO BID PRN PRN Reason: Constipation Last Admin: 08/21/20 09:55 Dose: 100 mg Documented by: Hydrocortisone Acetate (Anucort-Hc) 25 mg RECTAL BID PRN PRN Reason: Hemorrhoid pain Oxytocin/Lactated Ringer's (Pitocin In Lr 10 Units/1,000 Ml) 10 unit in 1,000 mls @ 100 mls/hr IV TITRATE ASH; Protocol Ibuprofen (Motrin) 600 mg PO Q6H PRN PRN Reason: Mild pain or fever Last Admin: 08/21/20 15:19 Dose: 600 mg Documented by: Magnesium Hydroxide (Milk Of Magnesia) 30 ml PO BEDTIME PRN PRN Reason: Constipation Oxycodone/Acetaminophen (Percocet 325-5 Mg) 1 tab PO Q4H PRN PRN Reason: Pain (moderate 4-6) Last Admin: 08/22/20 05:37 Dose: 1 tab Documented by: Oxycodone/Acetaminophen (Percocet 325-5 Mg) 2 tab PO Q4H PRN PRN Reason: Pain (severe 7-10) Last Admin: 08/21/20 21:47 Dose: 2 tab Documented by: Prenat Multivit/[place]/Iron/Folic Ac ( Plus Iron) 1 each PO DAILY ASH Last Admin: 08/22/20 08:53 Dose: 1 each Documented by: Yossi Cormier ([facility]) 1 pad TOP ASDIRECTED PRN PRN Reason: Perineal Comfort Measure Last Admin: 08/22/20 08:53 Dose: 1 container Documented by: Discontinued Medications Acetaminophen (Tylenol) 650 mg PO Q6H PRN PRN Reason: mild pain or fever Bupivacaine HCl (Sensorcaine-Mpf 0.25%) 10 ml .ROUTE .STK-MED ONE Stop: 08/20/20 00:01 Diphenhydramine HCl (Benadryl) 25 mg IVPUSH Q6H PRN PRN Reason: pruritis Ephedrine Sulfate (Ephedrine Sulfate) 5 mg IVPUSH ASDIRECTED PRN PRN Reason: Hypotension Fentanyl (Sublimaze) 100 mcg EPIDUR Q3H PRN PRN Reason: Pain Last Admin: 08/19/20 21:15 Dose: 100 mcg Documented by: Fentanyl/Bupivacaine HCl (Fentanyl/Bupivacaine/Ns 2 Mcg-0.125% 100 Ml) 100 ml EPIDUR ASDIRECTED PRN PRN Reason: Pain Last Admin: 08/20/20 04:43 Dose: 100 ml Documented by: Ampicillin Sodium 2 gm/ Sodium (Chloride) 100 mls @ 200 mls/hr IV ONETIME ONE Stop: 08/19/20 16:29 Last Admin: 08/19/20 15:54 Dose: 200 mls/hr Documented by: Ampicillin Sodium 1 gm/ Sodium (Chloride) 100 mls @ 200 mls/hr IV Q4H ASH Last Admin: 08/20/20 12:21 Dose: Not Given Documented by: Oxytocin/Lactated Ringer's (Pitocin In Lr 10 Units/1,000 Ml) 10 unit in 1,000 mls @ 500 mls/hr IV .CONTINUOUS ASH Last Admin: 08/20/20 12:51 Dose: 500 mls/hr Documented by: Oxytocin/Lactated Ringer's (Pitocin In Lr 10 Units/1,000 Ml) 10 unit in 1,000 mls @ 12 mls/hr IV TITRATE ASH; Protocol Last Titration: 08/20/20 11:58 Dose: 166.5 munits/min, 999 mls/hr Documented by: Lactated Ringer's (Ringers, Lactated) 1,000 mls @ 100 mls/hr IV ASDIRECTED ASH Last Admin: 08/20/20 10:45 Dose: 100 mls/hr Documented by: Lidocaine HCl (Xylocaine 1%) 50 ml INJECT ONETIME PRN PRN Reason: Breakthrough Pain Last Admin: 08/20/20 12:15 Dose: 50 ml Documented by: Lidocaine HCl (Xylocaine 1%) Confirm Administered Dose 50 ml .ROUTE .STK-MED ONE Stop: 08/20/20 12:13 Last Admin: 08/20/20 12:21 Dose: Not Given Documented by: Lidocaine HCl (Xylocaine-Mpf 1%) 5 ml .ROUTE .STK-MED ONE Stop: 08/20/20 00:01 Nalbuphine HCl (Nubain) 10 mg IVPUSH Q2H PRN PRN Reason: Pain Sodium Chloride (Saline Flush) 10 ml FLUSH ASDIRECTED PRN PRN Reason: Keep Vein Open
[2020-08-22] MEDS: Ibuprofen 600 MG Tab PO PRN (09:46)
[2020-08-22] MEDS: Docusate Sodium 100 MG Cap PO PRN (09:47)
[2020-08-22 10:10] VITALS: BP 121/70; PULSE 92
== END 2020-08-22 10:50 | disposition home or self-care (01) | DRG 807 ==
LOC: JD.OBCHECK 14:03 → JD.OB 14:04 → OBSVTOIN 08-20 11:56 → JD.OB 08-20 11:57
PROVIDERS: ADMIT Obstetrics & Gynecology; ATTEND Obstetrics & Gynecology
PROC: 0KQM0ZZ Repair Perineum Muscle, Open Approach (ICD-10-PCS; principal; 2020-08-20)
PROC: 10E0XZZ Delivery of Products of Conception, External Approach (ICD-10-PCS; 2020-08-20)
PROC: 3E0R3BZ Introduction of Anesthetic Agent into Spinal Canal, Percutaneous Approach (ICD-10-PCS; 2020-08-20)
DX: O99.824 Streptococcus B carrier state complicating childbirth (principal); Z37.0 Single live birth; Z3A.39 39 weeks gestation of pregnancy; O70.1 Second degree perineal laceration during delivery; O36.63X0 Maternal care for excessive fetal growth, third trimester, not applicable or unspecified; Z87.891 Personal history of nicotine dependence; Z20.822 Contact with and (suspected) exposure to COVID-19
CPT/HCPCS: 01967; 36415; 51702; 59025; 59409; 85025; 86592; A9270-GY; J0290; J2001; J2590; J3010; J3490; J7050; J7120; U0002

== ENCOUNTER 2022-05-15 20:30 | Inpatient (IN) | payer BC ==
[2022-05-16] MEDS ORDERED: Lactated Ringers 1,000 ML IV ONE (00:20)
[2022-05-16] MEDS ORDERED: fentaNYL 100 MCG/2 ML SDV EPIDUR ONE (00:26)
[2022-05-16] MEDS ORDERED: Bupivacaine/fentaNYL/NS 100 ML Bag EPIDUR ONE (00:37)
[2022-05-16] MEDS ORDERED: Oxytocin/Lactated Ringers 10 UNIT/1,000 ML BAG IV ONE (03:01)
[2022-05-16] MEDS ORDERED: Bupivacaine 0.25% 10 ML SDV EPIDUR ONE (11:20)
== END 2022-05-17 08:45 | disposition home or self-care (01) | DRG 560 ==
LOC: JD.OBCHECK 20:30 → JD.ZCENSUS 21:07 → OBSVTOIN 05-16 05:24
PROVIDERS: ADMIT Obstetrics & Gynecology; ATTEND Obstetrics & Gynecology
PROC: 3E0R3BZ Introduction of Anesthetic Agent into Spinal Canal, Percutaneous Approach (ICD-10-PCS; principal; 2022-05-16)
PROC: 10E0XZZ Delivery of Products of Conception, External Approach (ICD-10-PCS; principal; 2022-05-16)
PROC: 00HU33Z Insertion of Infusion Device into Spinal Canal, Percutaneous Approach (ICD-10-PCS; principal; 2022-05-16)
PROC: 0HQ9XZZ Repair Perineum Skin, External Approach (ICD-10-PCS; principal; 2022-05-16)
DX: O77.0 Labor and delivery complicated by meconium in amniotic fluid (principal); Z3A.39 39 weeks gestation of pregnancy; Z37.0 Single live birth; O70.0 First degree perineal laceration during delivery
CPT/HCPCS: 01967; 36415; 51702; 59025; 59409; 84112; 85025; 86592; 86850; 86900; 86901; J2590; J3010; J3490; J7120

== ENCOUNTER 2024-07-20 02:39 | Inpatient (IN) | payer BC, MEDICAID ==
[~2024-07-20 02:39] MED LIST: Ropivacaine 0.2% PF 2 MG/ML 20 ML SDV ONE
[2024-07-20] MEDS ORDERED: Ondansetron 4 MG/2 ML SDV IVPUSH PRN (03:35)
[2024-07-20] MEDS ORDERED: Sodium Chloride 0.9% 10 ML Syringe FLUSH PRN (03:35)
[2024-07-20] MEDS ORDERED: Nalbuphine 10 MG/1 ML Vial IVPUSH PRN (03:35)
[2024-07-20] MEDS ORDERED: Calcium Carbonate 500 MG Tab.Chew PO PRN (03:35)
[2024-07-20] MEDS ORDERED: Oxytocin/0.9 % Sodium Chloride 30 UNIT/500 ML BAG IV SCH (03:45)
[2024-07-20 04:05] LABS: BASOPHILS PERCENT AUTO 0.2 % (0.0-1.0); EOSINOPHILS ABSOLUTE AUTO 0.1 K/mm3 (0.0-0.4); EOSINOPHILS PERCENT AUTO 1.3 % (0.0-6.0); HEMATOCRIT 35.3 % (37.0-47.0); HEMOGLOBIN 12.5 gm/dl (12.0-16.0); IMMATURE GRAN ABSOLUTE AUTO 0.04 K/mm3 (0.00-0.05); IMMATURE GRAN PERCENT AUTO 0.4 % (0.0-0.4); LYMPHOCYTES ABSOLUTE AUTO 1.6 K/mm3 (1.0-4.8); LYMPHOCYTES PERCENT AUTO 15.3 % (24.0-44.0); MEAN CORPUSCULAR HEMOGLOBIN 30.1 pg (28.0-32.0); MEAN CORPUSCULAR HGB CONC 35.4 g/dl (32.0-36.0); MEAN CORPUSCULAR VOLUME 85.1 fl (83.0-99.0); MEAN PLATELET VOLUME 9.5 fl (9.4-12.3); MONOCYTES ABSOLUTE AUTO 0.6 K/mm3 (0.0-0.8); MONOCYTES PERCENT AUTO 6.1 % (0.0-8.0); NEUTROPHILS ABSOLUTE AUTO 7.9 K/mm3 (1.8-7.7); NEUTROPHILS PERCENT AUTO 76.7 % (41.0-71.0); PLATELET COUNT,PLT 170 K/mm3 (150-400); RED BLOOD CELL COUNT 4.15 M/mm3 (4.10-5.30); WHITE BLOOD CELL COUNT,WBC 10.29 K/mm3 (3.9-11.3)
[2024-07-20] MEDS: Oxytocin/0.9 % Sodium Chloride 30 UNIT/500 ML BAG IV SCH (05:33)
[2024-07-20] MEDS: Lactated Ringers 1,000 ML IV SCH (05:35)
[2024-07-20 05:39] LABS: CREATININE 0.6 mg/dL (0.55-1.02); EST CRCL DRUG DOSING (CG) 131.85 mL/min; URIC ACID 3.4 mg/dL (2.6-6.0)
[2024-07-20] MEDS ORDERED: diphenhydrAMINE 50 MG/ML SDV IVPUSH PRN (06:48)
[2024-07-20] MEDS ORDERED: ePHEDrine 50 MG/ML SDV IVPUSH PRN (06:48)
[2024-07-20] MEDS: Bupivacaine/fentaNYL/NS 100 ML Bag EPIDUR PRN (06:58)
[2024-07-20] MEDS: fentaNYL 100 MCG/2 ML SDV EPIDUR PRN (06:58)
[2024-07-20 07:05] LABS: CREATININE,URINE RAND 223.1 mg/dL (30.0-125.0); PROTEIN CREATININE RATIO,URINE 84.7 mg/g (0-149); PROTEIN,URINE RANDOM 18.9 mg/dL (0.0-11.8)
[2024-07-20] MEDS: Sodium Chloride 0.9% 10 ML Syringe FLUSH SCH (09:28)
[2024-07-20] MEDS: Lidocaine 1% 50 ML MDV INJECT PRN (11:54)
[2024-07-20] MEDS ORDERED: Docusate Sodium 100 MG Cap PO PRN (13:13)
[2024-07-20] MEDS: Ibuprofen 600 MG Tab PO SCH (14:12)
[2024-07-20] MEDS: Benzocaine/Menthol 20%-0.5% Spray 78 GM Cannister TOP PRN (14:13)
[2024-07-20] MEDS: Witch Hazel Medicated Pads 40/Jar TOP PRN (14:13)
[2024-07-21] MEDS: Acetaminophen 325 MG Tab PO PRN (00:41)
[2024-07-21 05:40] LABS: HEMATOCRIT 37.1 % (37.0-47.0); HEMOGLOBIN 12.1 gm/dl (12.0-16.0); MEAN CORPUSCULAR HEMOGLOBIN 30.3 pg (28.0-32.0); MEAN CORPUSCULAR HGB CONC 32.6 g/dl (32.0-36.0); MEAN PLATELET VOLUME 9.5 fl (9.4-12.3); PLATELET COUNT,PLT 182 K/mm3 (150-400); WHITE BLOOD CELL COUNT,WBC 9.21 K/mm3 (3.9-11.3)
[2024-07-21 05:55] LABS: MEAN CORPUSCULAR VOLUME 92.8 fl (83.0-99.0)
[2024-07-21 06:01] LABS: ANION GAP 10.8 (5-15); BUN/CREATININE RATIO 13.3 (14-18); CALCIUM 8.6 mg/dL (8.5-10.1); CREATININE 0.6 mg/dL (0.55-1.02); EST CRCL DRUG DOSING (CG) 131.85 mL/min; POTASSIUM,K 3.8 mEq/L (3.5-5.1)
[2024-07-21] MEDS: Ferrous Sulfate 324 MG Tab.EC PO SCH (07:38)
[2024-07-21] MEDS: Prenatal Multivitamin with Calcium/Folic Acid/Iron Tab PO SCH (08:05)
[2024-07-21 14:21] VITALS: BP 124/65; PULSE 76
== END 2024-07-21 14:14 | disposition home or self-care (01) | DRG 560 ==
LOC: JD.OBCHECK 02:39 → JD.OB 02:40 → JD.OBCHECK 02:40 → JD.OB 02:42 → OBSVTOIN 11:42 → JD.OB 11:43
PROVIDERS: ADMIT Family Medicine; ATTEND Family Medicine
PROC: 10E0XZZ Delivery of Products of Conception, External Approach (ICD-10-PCS; principal; 2024-07-20)
PROC: 10907ZC Drainage of Amniotic Fluid, Therapeutic from Products of Conception, Via Natural or Artificial Opening (ICD-10-PCS; 2024-07-20)
PROC: 3E033VJ Introduction of Other Hormone into Peripheral Vein, Percutaneous Approach (ICD-10-PCS; 2024-07-20)
PROC: 0HQ9XZZ Repair Perineum Skin, External Approach (ICD-10-PCS; 2024-07-20)
PROC: 3E0R3BZ Introduction of Anesthetic Agent into Spinal Canal, Percutaneous Approach (ICD-10-PCS; 2024-07-20)
PROC: 00HU33Z Insertion of Infusion Device into Spinal Canal, Percutaneous Approach (ICD-10-PCS; 2024-07-20)
DX: O42.02 Full-term premature rupture of membranes, onset of labor within 24 hours of rupture (principal); Z37.0 Single live birth; O24.415 Gestational diabetes mellitus in pregnancy, controlled by oral hypoglycemic drugs; O41.8X30 Other specified disorders of amniotic fluid and membranes, third trimester, not applicable or unspecified; O99.214 Obesity complicating childbirth; O70.0 First degree perineal laceration during delivery; Z3A.38 38 weeks gestation of pregnancy
CPT/HCPCS: 36415; 51701; 59409; 80048; 82565; 82570; 82947; 83615; 84112; 84156; 84450; 84460; 84520; 84550; 85025; 85027; 86592; 86850; 86900; 86901; A9270-GY; C1758; J2795; J3010; J3490; J7120; J7999